=== PATIENT | female | born 1950 | race Caucasian/White ===

== ENCOUNTER → 2017-04-17 | Outpatient (REF) | payer MEDICARE, OTHER ==
[~2017-04-17] MED LIST: ACE500 PO; ALBU8.5H12 IH; ALP1 PO; ALP5 PO; AMI25 PO; AMOX1TAB9 PO; BUS5 PO; CYCL-332 PO; DESV50TA9 PO; DEXL60CA6 PO; ESCI20TA38 PO; ESOM40SU2 PO; IBU800 PO; KET10 PO; LIB PO; LISD30PT PO; LISD40PT PO; LISI-362 PO; LOR5/325 PO; MET800 PO; MOD100 PO; NAPR1TAB PO; OMEP-218 PO; OMEP40CA48 PO; OXYC-865 PO; OXYIR PO; PER PO; SIMV-49 PO; SUMA50TA35 PO; TRAM100T22 PO; VENL25TA29 PO
[2017-04-17 10:33] LABS: PLATELET COUNT, AUTOMATED 187 K/uL (150-450)
== END ==
PROVIDERS: ATTEND Nurse Practitioner Family
DX: R10.9 Unspecified abdominal pain (principal)
CPT/HCPCS: 82040; 82247; 82310; 82374; 82435; 82565; 82947; 84075; 84132; 84155; 84295; 84450; 84460; 84520; 85025

== ENCOUNTER → 2018-02-16 | Outpatient (CLI) | payer MEDICARE, OTHER ==
[~2018-02-16] MED LIST changes: +CHLO4TAB10 PO; +CHOL10005 PO; +PANT40TA65 PO; +PREN-127 PO; +RANI-320 PO
== END ==
LOC: RESP 20:53
PROVIDERS: ATTEND Family Medicine
DX: G47.33 Obstructive sleep apnea (adult) (pediatric) (principal); G47.61 Periodic limb movement disorder; G47.36 Sleep related hypoventilation in conditions classified elsewhere

== ENCOUNTER → 2018-02-21 | Outpatient (CLI) | payer MEDICARE, OTHER ==
[~2018-02-21] MED LIST changes: +BARIUM SULFATE 176 GM BTL PO ONE; +BARIUM SULFATE 340 GM POWD ONE
--- NOTE | 2018-02-21 11:45 | RADIOLOGY IMAGING REPORT ---
FACILITY: [facility] - [place], [place] PATIENT NAME: Massiel Law : 1950 MR: [id number] V: [id number] EXAM DATE: ORDERING PHYSICIAN: NORA TORRES TECHNOLOGIST: Location: [facility] - [place], [place] Patient: Massiel Law : 1950 Visit/Account:[id number] Date of Sevice: 02/21/2018 UPPER GI W/SMALL BOWEL SERIES INDICATION: Occurred, recurrent belching, abdominal pain, post prandial bloating and dysphasia. COMPARISON: None available FINDINGS: Preliminary abdomen radiograph prior to contrast ingestion reveals cholecystectomy clips and nonobstr uctive bowel gas pattern. L4-5 disc space degeneration noted. Barium was ingested. The esophagus is normal in caliber. Normal GE junction. No apparent esophagea l abnormality. An ingested barium tablet passed freely into the stomach. The stomach is normal without mucosal abnormality or apparent ulceration. Gastric motility is normal . The duodenum is normal in position and normal. Three radiographs seven fluoroscopic images were obtained for the small bowel portion of the exam. The small bowel is normal in caliber. Small bowel mucosal pattern is normal. Contrast is seen withi n the colon at one hour postingestion. Fluoroscopy time 3.2 minutes. No apparent small bowel filling defect. The terminal ileum is normal. Dose area product 1776.77 microGy*m2. IMPRESSION: Normal upper GI and small bowel follow-through. Report Dictated By: Alon Tucker MD at 02/21/2018 11:34 AM Report E-Signed By: Alon Tucker MD at 02/21/2018 11:41 AM WSN:[id number]
== END ==
LOC: RAD 01:12
PROVIDERS: ATTEND Surgery
DX: K21.9 Gastro-esophageal reflux disease without esophagitis (principal); R14.2 Eructation; R10.9 Unspecified abdominal pain; R14.0 Abdominal distension (gaseous); R13.10 Dysphagia, unspecified
CPT/HCPCS: 74245

== ENCOUNTER 2018-03-15 00:18 | Day surgery (SDC) | payer MEDICARE, OTHER ==
[~2018-03-15] VITALS: Ht 163.8 cm; Wt 78.9 kg
[~2018-03-15 00:18] MED LIST changes: -BARIUM SULFATE 176 GM BTL PO ONE; -BARIUM SULFATE 340 GM POWD ONE
[2018-03-15 06:27] VITALS: BP 143/80
[2018-03-15] MEDS ORDERED: LIDOCAINE/SOD BICARB 8.4% SYR ID ONE (06:30)
[2018-03-15] MEDS ORDERED: NORMOSOL R SOLN(*) 1000 ML BAG 1,000 ML IV PRN (06:30)
[2018-03-15] MEDS ORDERED: PROPOFOL EMUL(*) 10MG/ML 20 ML 20 ML ONE ×2 (07:16→07:44)
[2018-03-15 07:59] VITALS: BP 116/79
--- NOTE | 2018-03-15 08:14 | Short(Outpt) Discharge Summary ---
Discharge Summary Reason for Hosp/Final Diag: (1) GERD (gastroesophageal reflux disease) Status: Chronic Hospital Course & Plan: EGD with biopsies completed without problems. Departure Discharge to: Home, Self Care Discharge Instructions Home Meds Active Scripts Ranitidine Hcl (RANITIDINE HCL) 300 Mg Tablet, 1 TAB PO QPM, #30 TAB 6 Refills Prov:NORA TORRES MD 02/07/18 Reported Medications Vits W-Ca,Fe,Fa(<1MG) ( VITAMINS) 1 Each Tablet, 1 EACH PO DAILY, TAB 02/07/18 Chlorpheniramine Maleate (ALLER-CHLOR) 4 Mg Tablet, 1 TAB PO QDAY PRN for ALLERGY SYMPTOMS 02/03/18 Cholecalciferol (Vitamin D3) (VITAMIN D3) 1,000 Unit Tablet, 1 TAB PO QDAY, TAB 02/03/18 Pantoprazole Sodium (PANTOPRAZOLE SODIUM) 40 Mg Tablet.dr, 1 TAB PO QDAY, TAB.SR 02/03/18 Ibuprofen (Motrin) 800 Mg Tab, 1 TAB PO Q8H, 0 Refills take as needed for pain 05/18/10 Diet: Regular Activity: As Tolerated Special Instructions: Your upper endoscopy was completed without any problems. I took some biopsies from your stomach and small intestine and so my office will call you in the next week or 2 and let you know what the biopsies reveal. I didn't find any cancer, ulcers, or inflammation. I did remove some benign polyps from your upper stomach but these don't lead to cancer or other problems. Continue taking pantoprazole every morning and ranitidine every evening. You may take an additional ranitidine occasionally if needed for breakthrough symptoms and you can use [id number] Tums, maalox, etc as well for breakthrough symptoms. You may resume ibuprofen on , 03/17/18. Problem Qualifiers (1) GERD (gastroesophageal reflux disease): Esophagitis presence: without esophagitis Qualified Codes: K21.9 - Gastro- esophageal reflux disease without esophagitis NORA TORRES MD Mar 15, 2018 08:14
[2018-03-15 08:15] VITALS: BP 153/85
[2018-03-15 08:30] VITALS: BP 150/81
[2018-03-15 08:46] VITALS: BP 184/95
[2018-03-15 08:49] VITALS: BP 183/96
== END 2018-03-15 09:10 | disposition home or self-care (01) ==
LOC: OR 00:18
PROVIDERS: ATTEND Surgery
DX: K21.9 Gastro-esophageal reflux disease without esophagitis (principal); K31.7 Polyp of stomach and duodenum; K44.9 Diaphragmatic hernia without obstruction or gangrene
CPT/HCPCS: 36415; 43239; 83516; 87077; 88305; 88344; J2704

== ENCOUNTER 2018-07-04 16:12 | Emergency (ER) | payer MEDICARE, OTHER ==
--- NOTE | 2018-07-04 16:33 | ER Report ---
History and Physical Time Seen By MD: 16:26 Hx. of Stated Complaint: pt sent from Dr. Mcallister's office. pt reports sob for 1 week, denies cp or other s/s HPI/ROS CHIEF COMPLAINT: Shortness of breath HISTORY OF PRESENT ILLNESS: This is a 68-year-old female who presents to the emergency department from Dr. Mcallister's office for shortness of breath. The patient was at Dr. Mcallister's office this afternoon for deviated septum. He noted that she was having increased shortness of breath, performed a pulmonary function test which seemed abnormal subsequently was sent to the ER for further evaluation. Patient arrives alert and oriented, in no apparent distress, she does have an essential tremor, she states that she has had increased shortness of breath over the last week or so she had aches and fevers, no chills earlier in the week, now she's developed diarrhea which does seem to be resolving. She is an asthmatic, she however he does not use her rescue inhaler as it exacerbates her essential tremor. She denies chest pain she denies nausea or vomiting at this time. No rashes. No headaches. REVIEW OF SYSTEMS: Constitutional: As above. Eyes: No discharge. ENT: No sore throat. Cardiovascular: No chest pain, no palpitations. Respiratory: As above. Gastrointestinal: No abdominal pain, no vomiting. Genitourinary: No hematuria. Musculoskeletal: No back pain. Skin: No rashes. Neurological: No headache. Allergies: Coded Allergies: Sulfa (Sulfonamide Antibiotics) (Verified Allergy, Severe, AIRWAY PROBLEMS AND SWELLING RASH, 07/04/18) peanut (Verified Allergy, Intermediate, BLISTERS, GI UPSET, 07/04/18) codeine (Verified Allergy, Mild, 07/04/18) hydrocodone (Verified Allergy, Mild, 07/04/18) latex (Verified Allergy, Mild, RASH, 07/04/18) Benzodiazepines (Unverified Adverse Reaction, Unknown, 07/04/18) stomach pain/vomiting animal dander (Unverified Adverse Reaction, Unknown, 07/04/18) egg (Unverified Adverse Reaction, Unknown, 07/04/18) milk (Unverified Adverse Reaction, Unknown, 07/04/18) Uncoded Allergies: CHOCOLATE (Allergy, Intermediate, BLISTER, GI UPSET, 09/26/12) Home Meds Active Scripts Levalbuterol Hcl (XOPENEX) 1.25 Mg/3 Ml Vial.neb, 1.25 MG IH Q4-6H, #1 BOX 0 Refills Prov:MEGAN NASSAR DEBURR OPERATOR-BC 07/04/18 Methylprednisolone (METHYLPREDNISOLONE) 4 Mg Tab.ds.pk, 4 MG PO DIRECTED, #1 TAB 0 Refills Prov:MEGAN NASSAR [facility]-BC 07/04/18 Ranitidine Hcl (RANITIDINE HCL) 300 Mg Tablet, 1 TAB PO QPM, #30 TAB 6 Refills Prov:NORA TORRES MD 02/07/18 Reported Medications Vits W-Ca,Fe,Fa(<1MG) ( VITAMINS) 1 Each Tablet, 1 EACH PO DAILY, TAB 02/07/18 Chlorpheniramine Maleate (ALLER-CHLOR) 4 Mg Tablet, 1 TAB PO QDAY PRN for ALLERGY SYMPTOMS 02/03/18 Cholecalciferol (Vitamin D3) (VITAMIN D3) 1,000 Unit Tablet, 1 TAB PO QDAY, TAB 02/03/18 Pantoprazole Sodium (PANTOPRAZOLE SODIUM) 40 Mg Tablet.dr, 1 TAB PO QDAY, TAB.SR 02/03/18 Ibuprofen (Motrin) 800 Mg Tab, 1 TAB PO Q8H, 0 Refills take as needed for pain 05/18/10 Past Medical/Surgical History The patient has a past medical surgical history of essential tremors, bleeding in the brain from a fall, increased heart rate with anxiety, hypercholesterolemia, sleep apnea, asthma, GERD, cholecystectomy, hiatal hernia, arthritis, ankle fracture, broken back and lumbar injury, wears glasses, hysterectomy, cholecystectomy, depression, tonsillectomy. Reviewed Nurses Notes: Yes Hx Smoking: No Smoking Status: Never Smoker Hx Substance Use Disorder: No Hx Alcohol Use: No Constitutional Vital Sign - Last 24 Hours 07/04/18 07/04/18 07/04/18 07/04/18 16:15 16:20 16:22 16:45 Temp 98.2 Pulse ??? 78 76 Resp 16 B/P (MAP) 171/82 171/82 (111) Pulse Ox 92 93 O2 Delivery Room Air 07/04/18 07/04/18 07/04/18 07/04/18 17:00 17:00 17:06 17:15 Pulse 68 70 77 Resp 18 18 Pulse Ox 93 92 O2 Delivery Room Air 07/04/18 07/04/18 17:38 17:45 Pulse 75 B/P (MAP) 136/81 (99) Pulse Ox 90 Physical Exam General Appearance: The patient is alert, has no immediate need for airway protection and no signs of toxicity. Eyes: Pupils equal and round no pallor or injection. ENT, Mouth: Mucous membranes are moist. Respiratory: There are no retractions, lungs are clear to auscultation. Cardiovascular: Regular rate and rhythm, no murmurs, clicks or rubs. Gastrointestinal: Abdomen is soft and non tender, no masses, bowel sounds normal. Neurological: Alert and oriented 4. Moving all extend his. Following all commands. No focal neuro deficits. Skin: Warm and dry, no rashes. Musculoskeletal: Neck is supple non tender. Extremities are nontender, nonswollen and have full range of motion. DIFFERENTIAL DIAGNOSIS: After history and physical exam differential diagnosis was considered for shortness of breath including but not limited to pulmonary infectious process, COPD, asthma, pulmonary embolus and congestive heart failure. Medical Decision Making Data Points Result Diagram: 07/04/18 1628 07/04/18 1628 Laboratory Hematology Test 07/04/18 16:20 07/04/18 16:28 Urine Color Yellow Urine Clarity Clear Urine pH 6.0 pH (4.8-9.5) Urine Specific [place] 1.020 Urine Protein Negative mg/dL (NEGATIVE) Urine Glucose (UA) Negative mg/dL (NEGATIVE) Urine Ketones Negative mg/dL (NEGATIVE) Urine Blood Negative (NEGATIVE) Urine Nitrite Negative (NEGATIVE) Urine Bilirubin Negative (NEGATIVE) Urine Urobilinogen Negative mg/dL (0.2-1.9) Urine Leukocyte Esterase Negative (NEGATIVE) Urine RBC None /HPF (0-2/HPF) Urine WBC <1 /HPF (0-5/HPF) Urine Squamous Epithelial Cells Few /LPF (</=FEW) Urine Bacteria Negative /HPF (NONE-FEW) Urine Mucus None /HPF (NONE-FEW) Red Blood Count 5.09 M/uL (4.17-5.56) Mean Corpuscular Volume 89.0 fL (80.0-96.0) Mean Corpuscular Hemoglobin 29.4 pg (26.0-33.0) Mean Corpuscular Hemoglobin Concent 33.0 g/dL (32.0-36.0) Red Cell Distribution Width 13.0 % (11.5-14.5) Mean Platelet Volume 8.6 fL (7.2-11.1) Neutrophils (%) (Auto) 83.5 % (39.4-72.5) Lymphocytes (%) (Auto) 8.8 % (17.6-49.6) Monocytes (%) (Auto) 7.2 % (4.1-12.4) Eosinophils (%) (Auto) 0.2 % (0.4-6.7) Basophils (%) (Auto) 0.3 % (0.3-1.4) Nucleated RBC Relative Count (auto) 0.0 /100WBC Neutrophils # (Auto) 10.7 K/uL (2.0-7.4) Lymphocytes # (Auto) 1.1 K/uL (1.3-3.6) Monocytes # (Auto) 0.9 K/uL (0.3-1.0) Eosinophils # (Auto) 0.0 K/uL (0.0-0.5) Basophils # (Auto) 0.0 K/uL (0.0-0.1) Nucleated RBC Absolute Count (auto) 0.00 K/uL Sodium Level 132 mmol/L (137-145) Potassium Level 4.1 mmol/L (3.5-5.0) Chloride Level 100 mmol/L (98-107) Carbon Dioxide Level 26 mmol/L (22-31) Blood Urea Nitrogen 26 mg/dl (7-18) Creatinine 0.80 mg/dl (0.52-1.04) Glomerular Filtration Rate Calc > 60.0 Random Glucose 126 mg/dl (75-110) Calcium Level 9.1 mg/dl (8.4-10.2) Total Bilirubin 0.3 mg/dl (0.2-1.3) Aspartate Amino Transf (AST/SGOT) 42 U/L (0-35) Alanine Aminotransferase (ALT/SGPT) 18 U/L (0-56) Alkaline Phosphatase 83 U/L (0-126) Troponin I < 0.012 ng/ml Total Protein 6.6 g/dl (6.3-8.2) Albumin 4.0 g/dl (3.5-5.0) Chemistry Test 07/04/18 16:20 07/04/18 16:28 Urine Color Yellow Urine Clarity Clear Urine pH 6.0 pH (4.8-9.5) Urine Specific [place] 1.020 Urine Protein Negative mg/dL (NEGATIVE) Urine Glucose (UA) Negative mg/dL (NEGATIVE) Urine Ketones Negative mg/dL (NEGATIVE) Urine Blood Negative (NEGATIVE) Urine Nitrite Negative (NEGATIVE) Urine Bilirubin Negative (NEGATIVE) Urine Urobilinogen Negative mg/dL (0.2-1.9) Urine Leukocyte Esterase Negative (NEGATIVE) Urine RBC None /HPF (0-2/HPF) Urine WBC <1 /HPF (0-5/HPF) Urine Squamous Epithelial Cells Few /LPF (</=FEW) Urine Bacteria Negative /HPF (NONE-FEW) Urine Mucus None /HPF (NONE-FEW) White Blood Count 12.9 k/uL (4.5-11.0) Red Blood Count 5.09 M/uL (4.17-5.56) Hemoglobin 15.0 g/dL (12.0-16.0) Hematocrit 45.3 % (34.0-47.0) Mean Corpuscular Volume 89.0 fL (80.0-96.0) Mean Corpuscular Hemoglobin 29.4 pg (26.0-33.0) Mean Corpuscular Hemoglobin Concent 33.0 g/dL (32.0-36.0) Red Cell Distribution Width 13.0 % (11.5-14.5) Platelet Count 303 K/uL (150-450) Mean Platelet Volume 8.6 fL (7.2-11.1) Neutrophils (%) (Auto) 83.5 % (39.4-72.5) Lymphocytes (%) (Auto) 8.8 % (17.6-49.6) Monocytes (%) (Auto) 7.2 % (4.1-12.4) Eosinophils (%) (Auto) 0.2 % (0.4-6.7) Basophils (%) (Auto) 0.3 % (0.3-1.4) Nucleated RBC Relative Count (auto) 0.0 /100WBC Neutrophils # (Auto) 10.7 K/uL (2.0-7.4) Lymphocytes # (Auto) 1.1 K/uL (1.3-3.6) Monocytes # (Auto) 0.9 K/uL (0.3-1.0) Eosinophils # (Auto) 0.0 K/uL (0.0-0.5) Basophils # (Auto) 0.0 K/uL (0.0-0.1) Nucleated RBC Absolute Count (auto) 0.00 K/uL Glomerular Filtration Rate Calc > 60.0 Calcium Level 9.1 mg/dl (8.4-10.2) Total Bilirubin 0.3 mg/dl (0.2-1.3) Aspartate Amino Transf (AST/SGOT) 42 U/L (0-35) Alanine Aminotransferase (ALT/SGPT) 18 U/L (0-56) Alkaline Phosphatase 83 U/L (0-126) Troponin I < 0.012 ng/ml Total Protein 6.6 g/dl (6.3-8.2) Albumin 4.0 g/dl (3.5-5.0) Urinalysis Test 07/04/18 16:20 Urine Color Yellow Urine Clarity Clear Urine pH 6.0 pH (4.8-9.5) Urine Specific [place] 1.020 Urine Protein Negative mg/dL (NEGATIVE) Urine Glucose (UA) Negative mg/dL (NEGATIVE) Urine Ketones Negative mg/dL (NEGATIVE) Urine Blood Negative (NEGATIVE) Urine Nitrite Negative (NEGATIVE) Urine Bilirubin Negative (NEGATIVE) Urine Urobilinogen Negative mg/dL (0.2-1.9) Urine Leukocyte Esterase Negative (NEGATIVE) Urine RBC None /HPF (0-2/HPF) Urine WBC <1 /HPF (0-5/HPF) Urine Squamous Epithelial Cells Few /LPF (</=FEW) Urine Bacteria Negative /HPF (NONE-FEW) Urine Mucus None /HPF (NONE-FEW) EKG/Imaging EKG Interpretation 12 lead EKG: Time of EKG 1625. Rhythm: Normal sinus rhythm, ventricular rate 85 bpm. [place]: normal QRS: normal ST segments: No ST depression or elevation identified. Previous EKG from 12/09/2012 EKG showing inverted T waves in V1, be to otherwise no significant changes. [place] [facility] [place] Massiel Law : 1950 Visit/Account:[id number] Date of Sevice: 07/04/2018 Examination: CHEST PA LAT Comparison: 12/08/2012. History: Respiratory distress. Findings: Cardiac and hilar contour size is normal. Aortic atherosclerosis. No consolidation, nodule, or peribronchial inflammation. No pneumothorax, edema, or effusion. Visualized bowel gas pattern is unremarkable. Mild degenerative change in the thoracic spine. IMPRESSION: No findings of acute cardiopulmonary disease. Report Dictated By: Amadeo Lucas MD at 07/04/2018 6:00 PM Report E-Signed By: Amadeo Lucas MD at 07/04/2018 6:02 PM WSN:[id number] ED Course/Re-evaluation Clinical Indication for ER IV: IV Access ED Course The patient was noted to room. A history and physical were obtained. Differential diagnoses were considered. An IV was started. A CBC, CMP and troponin were obtained. CC showing white count 12.9, with a left shift, negative troponin, chemistry otherwise unremarkable, negative UA. Two-view chest x-ray n egative for any acute coronary pulmonary process. A Xopenex nebulizer was given, patient states she does feel better after the treatment. We did use Xopenex that she has essential tremors that are exacerbated by full dose albuterol. I did review the results with the patient, I did tell her that this is likely a viral type of illness causing the mild shortness of breath, and the loose stools, there could also be an allergen component to this, we discussed this. I did send a prescription to the patient's pharmacy for Medrol Dosepak and Xopenex, she said she will monitor how she feels over the next couple of days, if her symptoms are the same or improving she will not fill the prescriptions, if her symptoms seem to be getting worse, she will start with a Medrol Dosepak and felt a Xopenex and follow up with her primary care provider. The patient had no other questions or concerns at this time, she is agreeable with this plan care and discharged home. Decision to Disposition Date: Jul 04, 2018 Decision to Disposition Time: 18:19 Depart Departure Latest Vital Signs Vital Signs Date Time Temp Pulse Resp B/P (MAP) Pulse Ox O2 Delivery O2 Flow Rate FiO2 07/04/18 17:45 75 90 07/04/18 17:38 136/81 (99) 07/04/18 17:06 18 07/04/18 17:00 Room Air 07/04/18 16:20 98.2 Impression: Primary Impression: Shortness of breath Additional Impression: History of asthma Condition: Improved Disposition: HOME OR SELF-CARE Referrals: ROSA VINCENT DO (PCP) New Scripts Levalbuterol Hcl (XOPENEX) 1.25 Mg/3 Ml Vial.neb 1.25 MG IH Q4-6H, #1 BOX 0 Refills Prov: MEGAN NASSAR-BC 07/04/18 Methylprednisolone (METHYLPREDNISOLONE) 4 Mg Tab.ds.pk 4 MG PO DIRECTED, #1 TAB 0 Refills Prov: MEGAN NASSAR-BC 07/04/18 Patient Instructions: Asthma (ED) Additional Instructions: There were no concerning findings on the Chest Xray. No concerning findings on lab studies. No concerning findings on EKG. If you continue to have symptoms, then take the medrol dose pack and try the Xopenex nebs. Then follow up with your PCP or one of the partners for reevaluation. Get plenty of rest.j Drink plenty of fluids. Return to the ED for any other concerns or worsening symptoms. Problem Qualifiers MEGAN NASSAR-NANDO Jul 04, 2018 16:33
[2018-07-04] MEDS ORDERED: LEVALBUTEROL 1.25 MG/3 ML NEB NEB ONE (16:45)
[2018-07-04 16:59] LABS: PLATELET COUNT, AUTOMATED 303 K/uL (150-450)
[2018-07-04 17:38] VITALS: BP 136/81
[2018-07-04] MEDS ORDERED: METH4TAB66 PO (18:05)
[2018-07-04] MEDS ORDERED: LEVA1.2527 IH (18:05)
--- NOTE | 2018-07-04 18:05 | RADIOLOGY IMAGING REPORT ---
FACILITY: [facility] PATIENT NAME: Massiel Law : 1950 MR: [id number] V: [id number] EXAM DATE: ORDERING PHYSICIAN: MEGAN NASSAR TECHNOLOGIST: Location: [place] [facility] - [place] Patient: Massiel Law : 1950 Visit/Account:[id number] Date of Sevice: 07/04/2018 Examination: CHEST PA LAT Comparison: 12/08/2012. History: Respiratory distress. Findings: Cardiac and hilar contour size is normal. Aortic atherosclerosis. No consolidation, nodule, or peribronchial inflammation. No pneumothorax, edema, or effusion. Visualized bowel gas pattern is unremarkable. Mild degenerative change in the thoracic spine. IMPRESSION: No findings of acute cardiopulmonary disease. Report Dictated By: Amadeo Lucas MD at 07/04/2018 6:00 PM Report E-Signed By: Amadeo Lucas MD at 07/04/2018 6:02 PM WSN:[id number]
--- NOTE | 2018-07-04 18:37 | EKG ---
FACILITY: [facility] - [place] PATIENT NAME: CUCO KERR : [id number] MR: [id number] V: [id number] EXAM DATE: ORDERING PHYSICIAN: MEGAN NASSAR TECHNOLOGIST: ANGEL Palacios Reason : SOB Blood Pressure : / mmHG Vent. Rate : 085 BPM Atrial Rate : 085 BPM P-R Int : 136 ms QRS Dur : 068 ms QT Int : 350 ms P-R-T Axes : 065 029 063 degrees QTc Int : 416 ms Normal sinus rhythm Normal ECG When compared with ECG of 09-DEC-2012 01:23, T wave inversion no longer evident in Anterior leads Confirmed by NORA REY ([id number]) on 07/04/2018 7:24:25 PM Referred By: EDUAR Confirmed By:NORA REY
== END 2018-07-04 18:30 | disposition home or self-care (01) ==
LOC: ER 16:46
DX: R06.02 Shortness of breath (principal); J45.909 Unspecified asthma, uncomplicated
CPT/HCPCS: 71046; 81001; 82040; 82247; 82310; 82374; 82435; 82565; 82947; 84075; 84132; 84155; 84295; 84450; 84460; 84484; 84520; 85025; 93005; 94640; 99284

== ENCOUNTER → 2018-07-15 | Outpatient (REF) | payer MEDICARE, OTHER ==
[~2018-07-15] MED LIST changes: +LEVA1.2527 IH; +METH4TAB66 PO
[2018-07-15 11:16] LABS: PLATELET COUNT, AUTOMATED 190 K/uL (150-450)
== END ==
PROVIDERS: ATTEND Nurse Practitioner Family
DX: R05 Cough (principal)
CPT/HCPCS: 82040; 82247; 82310; 82374; 82435; 82565; 82947; 84075; 84132; 84155; 84295; 84450; 84460; 84484; 84520; 85025; 85379

== ENCOUNTER → 2018-09-28 | Outpatient (REF) | payer MEDICARE, OTHER | LOC: ZZIMHLAB 15:34 | PROVIDERS: ATTEND Family Medicine | DX: R35.0 Frequency of micturition (principal) | CPT/HCPCS: 87088 ==